=== PATIENT | male | born 1965 | race African-American/Black ===

== ENCOUNTER 2017-01-26 08:06 | Emergency (ER) | payer BC ==
--- NOTE | ~2017-01-26 | CR72 ---
[facility] A Service of [facility] RADIOLOGY TEXT RESULTS PATIENT: NATALIO SUTHERLAND LOCATION: [facility] : 63 UNIT #: [id number] AGE: [address]: Curly Izaguirre MD SEX: M ORDER DR: [id number] [facility] [address] [place], [place] [address] [id number] E MR#: [id number] Acc #: [id number] NAME: NATALIO SUTHERLAND. : 1965 SEX: M STUDY DATE/TIME: 01/26/2017 8:54 UNIT: [facility] ROOM: STUDY DESCRIPTION: CR Chest Single View Portable Attending Physician: Curly Izaguirre M.D. Ordering Physician: Curly Izaguirre M.D. Primary Care Physician: No Primary Care Physician MEDICAL IMAGING REPORT This report is preliminary unless electronic signature is present EXAM Portable chest one-view, 01/26/2017 COMPARISON 11/03/2015. CLINICAL HISTORY Chest pain for 4 days. FINDINGS A single AP portable view of the chest shows both lungs to be clear. The heart is normal in size. The mediastinal contour is normal. No significant bone abnormalities are seen. IMPRESSION Normal portable chest. Dictated by... James Montez M.D. THIS IS AN ELECTRONICALLY VERIFIED REPORT James Montez M.D. at 01/26/2017 4:26 PM RUTH/galileo TD: 01/26/2017 12:35 JOB #: [id number] MEDICAL IMAGING REPORT Page 1 of 1 COPY
--- NOTE | ~2017-01-26 | EKG ---
PATIENT: NATALIO SUTHERLAND UNIT #: [id number] Ventricular Rate: 76 BPM Atrial Rate: 76 BPM P-R Interval: 172 ms QRS Duration: 86 ms Q-T Interval: 378 ms QTC Calculation(Bezet): 425 ms P [place]: 64 degrees Calculated R [place]: 49 degrees Calculated T [place]: 63 degrees Diagnosis Line: Normal sinus rhythm Diagnosis Line: Normal ECG Diagnosis Line: When compared with ECG of 26-JAN-2017 08:10, Diagnosis Line: (unconfirmed) Diagnosis Line: No significant change was found Diagnosis Line: Confirmed by FLORINDA YO MD ([id number]) on Diagnosis Line: 01/27/2017 6:47:27 AM INTERPRETING MD: EDDIE
--- NOTE | ~2017-01-26 | EKG ---
PATIENT: NATALIO SUTHERLAND UNIT #: [id number] Ventricular Rate: 83 BPM Atrial Rate: 83 BPM P-R Interval: 164 ms QRS Duration: 88 ms Q-T Interval: 376 ms QTC Calculation(Bezet): 441 ms P [place]: 76 degrees Calculated R [place]: 47 degrees Calculated T [place]: 70 degrees Diagnosis Line: Normal sinus rhythm Diagnosis Line: Normal ECG Diagnosis Line: When compared with ECG of 09-SEP-2013 16:52, Diagnosis Line: No significant change was found Diagnosis Line: Confirmed by FLORINDA YO MD ([id number]) on Diagnosis Line: 01/27/2017 6:39:56 AM INTERPRETING MARCELINO MORGAN
--- NOTE | ~2017-01-26 | DS ---
Unit #: [id number] #: [id number] Patient: NATALIO SUTHERLAND [id number] [facility]. [address] [place], [place] [address] [id number] E MR#: [id number] NAME: NATALIO SUTHERLAND ROOM: Age: 51 Sex: M Admission Date: 01/26/2017 : 1965 Discharge Date: 01/26/2017 Attending Physician: uCrly Izaguirre M.D. Primary Care Physician: No Primary Care Physician DISCHARGE SUMMARY DISCHARGE DIAGNOSES 1. Acute inferior wall myocardial infarction. 2. Hypokalemia. 3. Hypertension. 4. Hyperlipidemia. 5. Reformed tobacco abuse. DISCHARGE MEDICATIONS 1. Aspirin 81 mg p.o. once a day. 2. Metoprolol 25 mg p.o. twice a day. 3. Lipitor 80 mg p.o. (1)* . 4. Nitroglycerin drip. 5. Heparin drip. 6. Integrilin drip. HOSPITAL COURSE This was a 51-year-old -U[place] male with a prior history of hypertension and hyperlipidemia. He presented to the ER with substernal mid chest pressure that felt like a knot trying to swell in his mid sternum off and on for several days. In the ER, his troponin was elevated at 1.18 with a peak of 2.03. His EKG showed normal sinus rhythm with ST-T wave ischemic changes. He was started on a heparin, nitroglycerin, and Integrilin drip. He was started on statin, aspirin, and beta jensen. He needs a cardiac cath, so he will be transferred to [facility]. He currently is having chest discomfort described in a tightness in his mid sternal chest but states it is not bad and has improved since arrival to the ER. His potassium is low and will be replaced. An echocardiogram was performed at bedside. The report is not currently available. He is stable for transfer to [facility]. PHYSICAL EXAMINATION VITAL SIGNS: Blood pressure 131/102, heart rate 95, respiratory rate 16, temperature 97.8, 100% saturation. CHEST: Clear to auscultation. Nonlabored respirations. HEART: S1, S2. Regular rate and rhythm. No significant murmurs, rubs, or gallop. ABDOMEN: Soft, nontender with hyperactive bowel sounds. EXTREMITIES: No leg edema. No pulses are palpable. DIAGNOSTIC STUDIES LABORATORY: Sodium 132, potassium 3.2, chloride 97, BUN 10, creatinine 1.3, glucose 103. Hemoglobin 14.9, hematocrit 45.6, white blood cell count 6.2, platelets 219,000. AST 49, ALT 41, alkaline phosphatase 51. Point of care troponin 1.18 and 2.03. Unit #: [id number] #: [id number] Patient: NATALIO SUTHERLAND CARDIOVASCULAR: Sinus rhythm with a ventricular rate of 74. ST-T wave changes in inferior leads. DISCHARGE INSTRUCTIONS 1. Transfer to [facility] [employer] [facility] holding area. 2. Continue heparin, Integrilin, and nitroglycerin drip. 3. Continue aspirin, statin, and beta jensen. 4. [facility] [employer] holding area has been contacted as well as Dr. Tamayo. *Report faxed to the office of Santa Tran APRN on 01/27/17 for medication verification. cd Dictated by... Santa Tran APRN for Patricia Dunbar/randolph TD: 01/27/2017 09:05 JOB #: [id number] DISCHARGE SUMMARY Page 1 of 1 X X DISCHARGE SUMMARY
--- NOTE | ~2017-01-26 | HP ---
Unit #: [id number] #: [id number] Patient: NATALIO SUTHERLAND [id number] [place], [place] [address] [id number] E MR#: [id number] NAME: NATALIO SUTHERLAND ROOM: Age: 51 Sex: M Admission Date: 01/26/2017 : 1965 Attending Physician: Curly Izaguirre M.D. Primary Care Physician: No Primary Care Physician HISTORY AND PHYSICAL This is a 51-year-old -Y[place]i male with a prior history of hypertension, hyperlipidemia, and reformed tobacco abuse. He presented to the ER with some substernal mid chest pressure that reportedly felt like "a knot trying to swell in mid sternum." The discomfort has waxed and waned since January 20. It is worse with activity. It is accompanied with some shortness of air and lightheadedness. Initial EKG in the ER showed sinus rhythm with ventricular rate of 74, nonspecific T wave abnormalities. Repeat EKG done three hours later showed some ST elevation in the inferior leads. Initial troponin was 1.18. Repeat troponin was elevated further at 2.03. He continues to have some chest discomfort. He denies prior cardiac disease or diabetes. PREVIOUS MEDICAL HISTORY 1. Hypertension. 2. Hyperlipidemia. 3. Reformed tobacco abuse. PAST SURGICAL HISTORY Inguinal hernia repair. 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 He is a reformed smoker. He states he quit about four years ago. He denies illicit drug or alcohol use. FAMILY HISTORY Denies a family history of premature coronary artery disease. ALLERGIES No known drug allergies. HOME MEDICATIONS 1. Chlorthalidone 25 mg, half a tab once a day. 2. Vitamin D2 5000 units p.o. once a week. 3. Naproxen 220 mg p.o. every 12 hours as needed for pain. REVIEW OF SYSTEMS Positive for weakness, fatigue, chest pressure, indigestion, and lightheadedness. Reports occasional palpitations. Denies nausea or vomiting. Denies fever, chills, body aches or recent illness. PHYSICAL EXAMINATION VITAL SIGNS: Temp 97.8, heart rate 95, respiratory rate 16, 100% on room air, blood pressure 131/102. HEENT: Head is atraumatic and normocephalic. Pupils are equal and round. Mucous membranes are moist. Unit #: [id number] #: [id number] Patient: NATALIO SUTHERLAND NECK: Supple. Trachea is midline. Negative for JVD. LUNGS: Clear to auscultation, nonlabored respirations. CARDIOVASCULAR: S1 and S2. Regular rate and rhythm. No significant murmurs, rubs or gallops auscultated. ABDOMEN: Soft, nontender, nondistended. Hyperactive bowel sounds. EXTREMITIES: Pulses are palpable. No pedal edema. No cyanosis. NEUROLOGIC: Alert and oriented x3. Moves all extremities equally and follows commands without difficulty. DIAGNOSTIC STUDIES LABORATORY: Sodium 132, potassium 3.2, chloride 97, BUN 10, creatinine 1.3, glucose 103, hemoglobin 14.9, hematocrit 45.6, platelets 219, white blood count 6.2. AST 49, ALT 41, alkaline phos. 51. Point of are troponin at 10:54 a.m. was 1.18 and 11:39 a.m. 2.03. IMAGING: Chest x-ray showed no acute findings. CARDIOVASCULAR: Initial EKG showed normal sinus rhythm with a ventricular rate of 74 and nonspecific T wave abnormalities in V1 and V2. Repeat EKG showed normal sinus rhythm with a ventricular rate of [address] elevation in the inferior leads. ASSESSMENT 1. Acute inferior wall myocardial infarction. 2. Hypokalemia. 3. Hypertension. 4. Hyperlipidemia. 5. Reformed tobacco abuse. PLAN 1. Start nitro drip and titrate for chest pain as blood pressure allows. 2. Start heparin drip weight-based protocol with bolus. 3. Start Integrilin drip. 4. 2D echocardiogram stat. 5. Trend cardiac enzymes. 6. Check fasting lipid profile. 7. Replace potassium. 8. Add beta jensen, aspirin, statin. 9. Patient needs cardiac cath. Transfer to [facility] holding. Spoke with Dr. Tamayo. Dictated by Santa Tran APRN for Patricia Dunbar/yao TD: 01/27/2017 09:31 JOB #: [id number] Unit #: [id number] #: [id number] Patient: NATALIO SUTHERLAND HISTORY AND PHYSICAL Page 1 of 1 X X HISTORY AND PHYSICAL
[~2017-01-26 08:06] MED LIST: ADVAIR INH; ANTIVERT PO; ASPIRIN81 M1 PO; ATIVAN0.5 MG DOB; CEFUROXIME250 MG; CEFUROXIME250 MG PO; DOXYCYCLINE150 MG; DOXYCYCLINE150 MG PO; FLAGYL PO; FLONASE16 GM; NO MEDICATIONS; PHENERGAN W/CO120 ML PO; SUPRAX400 MG PO; TRAMADOL HCL50 M1 PO; VIBRAMYCIN100 M1 PO; VICODIN 5/500 T1 TAB PO; ZITHROMAX PO; ZYRTEC-D T1 TAB.SR . PO
[2017-01-26 09:25] LABS: BASOPHIL% 0.4 % (0-2.5); EOSINOPHIL# 0.1 X10e3 (0-0.7); EOSINOPHIL% 1.7 % (0.0-7.0); HEMATOCRIT 45.6 % (38.0-50.0); HEMOGLOBIN 14.9 gm/dL (13.0-16.0); LYMPHOCYTE# 1.7 X10e3 (1.0-3.5); LYMPHOCYTE% 27.1 % (17.0-45.0); MEAN CELL VOLUME 87.6 FL (83-96); MEAN CORPUSCULAR HEMOGLOBIN 28.6 PG (28-34); MEAN CORPUSCULAR HGB CONC 32.6 g/dL (30-36); MONOCYTE% 15.4 % (3.0-12.0); NEUTROPHIL# 3.4 X10e3 (1.5-7.1); NEUTROPHIL% 55.4 % (40-75); PLATELET COUNT 219 X10e3 (140-420); RED BLOOD COUNT 5.21 X10e (3.90-5.60); RED CELL DISTRIBUTION WIDTH 13.2 % (11.0-15.5); WHITE BLOOD COUNT 6.2 X10e3 (4.0-10.5)
[2017-01-26 09:27] LABS: DIFF IND NO
[2017-01-26 09:50] LABS: ALBUMIN SERUM 4.3 g/dL (3.5-5.0); BILIRUBIN, DIRECT 0.1 mg/dL (0.0-0.2); BILIRUBIN,INDIRECT 0.5 mg/dL (0.0-0.9); BILIRUBIN,TOTAL 0.6 mg/dL (0.2-2.0); BUN/CREATININE RATIO 7.69; CALCIUM SERUM 9.5 mg/dL (8.4-10.2); CREATININE SERUM 1.3 mg/dL (0.6-1.4); GLOM FILT RATE Estimated 72.7 mL/min (>60); POTASSIUM 3.2 mmol/L (3.5-5.1); PROTEIN TOTAL SERUM 8.6 g/dL (6.0-8.3)
[2017-01-26 10:56] LABS: POC - CKMB 4.2 ng/mL (0.0-7.9); POC - TROPONIN 1.18 ng/mL (<=0.05)
[2017-01-26] MEDS ORDERED: CHLORTHALIDONE25 M1 PO (11:33)
[2017-01-26] MEDS ORDERED: PATIENT'S PHARMACY (11:33)
[2017-01-26] MEDS ORDERED: NAPROXEN PO (11:34)
[2017-01-26] MEDS ORDERED: VITAMIN D250000 UNIT PO (11:34)
[2017-01-26 11:41] LABS: POC - CKMB 4.3 ng/mL (0.0-7.9); POC - TROPONIN 2.03 ng/mL (<=0.05)
== END 2017-01-26 13:20 ==
LOC: CED 08:06 → CFTX 09:08
PROVIDERS: Emergency Medicine
DX: I21.3 ST elevation (STEMI) myocardial infarction of unspecified site (principal); F17.200 Nicotine dependence, unspecified, uncomplicated; Z79.899 Other long term (current) drug therapy; Z79.1 Long term (current) use of non-steroidal anti-inflammatories (NSAID)
CPT/HCPCS: 36415; 71010; 80048; 80076; 82553; 83690; 84484; 85025; 93005; 93308; 99285; J1644